=== PATIENT | female | born 1955 | race Caucasian/White ===

== ENCOUNTER 2017-03-23 09:14 | Inpatient (IN) ==
[2017-03-23 10:55] LABS: MANUAL DIFF NEEDED? NO
[2017-03-23 10:58] LABS: BASO% 0.3 % (0.0-0.8); EOS# 0.32 X1000 (0.0-0.7); EOS% 4.3 % (0.0-10.0); HEMATOCRIT 39.7 % (37.0-47.0); HEMOGLOBIN 12.4 g/dL (12.0-16.0); IMM GRAN# 0.03 X1000 (0.0-0.04); IMM GRAN% 0.4 % (0.0-0.5); LYMPH% 39.9 % (20.5-51.1); MCH 31.2 PG (27-31); MCHC 31.2 g/dL (33-37); MONO# 0.65 X1000 (0.11-0.59); MONO% 8.6 % (1.7-9.3); MPV 10.2 FL (7.4-10.4); NEUT% 46.5 % (42.2-75.2); PLT 227 X1000 (130-400); RBC 3.97 XMIL (4.2-5.4)
[2017-03-23 11:16] LABS: AGAP 8; ALBUMIN 3.6 g/dL (3.5-5.0); ALKALINE PHOSPHATASE 75 U/L (32-104); BUN 16 mg/dL (8-22); CALCIUM 8.9 mg/dL (8.8-10.2); CHLORIDE 98 mmol/L (98-107); COSMO 279; GOT 12 U/L (10-30); GPT < 5 U/L (10-36); SODIUM 138 mmol/L (136-145); TCO2 32 mmol/L (25-35); TOTAL BILIRUBIN 0.12 mg/dL (0.20-1.00); TOTAL PROTEIN 6.9 g/dL (6.3-8.3)
[2017-03-23 11:22] LABS: FREE T4 0.83 ng/dL (0.93-1.70)
[2017-03-23] MEDS: LOVENOX SUBQ SCH (11:25)
[2017-03-23] MEDS: NS 1,000 ML IV SCH (11:25)
[2017-03-23 11:37] LABS: ALLEN TEST YES; BE 8.4 mmoll (-3.0-3.0); BLOOD TYPE ARTERIAL; DRAW SITE R RADIAL; METHB 0.7 % (0.0-1.5); MODALITY CANNULA; O2(CT) 16.9 mL/dL (15.0-23.0); PO2(98.6) 69 mmHg (60-100); SAMPLE BLOOD; SAO2 95.6 % (95.0-100.0); THB 12.9 g/dL (11.5-17.4); pH(98.6) 7.33 (7.35-7.45)
[2017-03-23 11:38] LABS: PCO2(98.6) 70 mmHg (35-45)
[2017-03-23 11:55] LABS: URINE SOURCE CATH
[2017-03-23 11:59] LABS: BILIRUBIN URINE NEGATIVE (NEGATIVE); BLOOD URINE MODERATE (NEGATIVE); COLOR YELLOW; GLUCOSE URINE NEGATIVE (NEGATIVE); LEUKOCYTES URINE LARGE (NEGATIVE); NITRITE URINE POSITIVE (NEGATIVE); PROTEIN URINE 30 mg/dL (NEGATIVE); TURBIDITY URINE TURBID (CLEAR); UROBILINOGEN URINE NORMAL (NORMAL)
[2017-03-23 12:07] LABS: UR EPITHELIAL CELLS <10 /HPF (<10); URINE BACTERIA 3+ /HPF; URINE CULTURE NEEDED? YES; URINE MICRO REVIEW NEEDED? YES; URINE RBC 20-40 /HPF (<10); URINE WBC TNTC /HPF (<10)
[2017-03-23] MEDS ORDERED: PHENERGAN PO PRN (12:21)
[2017-03-23 12:28] LABS: URINE CASTS NONE SEEN
[2017-03-23 12:29] LABS: URINE CRYSTALS CA OXALATE PRESENT
--- NOTE | 2017-03-23 12:46 | Diag Imaging Result Doc PS360 ---
EXAM: CHEST-PORTABLE HISTORY: asthma TECHNIQUE: Portable upright COMPARISON: 01/14/2016. FINDINGS: The heart remains enlarged. The vessels are not distended. There is either an infiltrate in the left base or the left hemidiaphragm is elevated. Alternatively there could be atelectasis in the left base or fibrosis. Right lung remains clear. There is been prior surgery to the lower neck. IMPRESSION: Stable chest Electronically signed by Salvatore La 03/23/2017 12:44 PM
--- NOTE | 2017-03-23 12:52 | Diag Imaging Result Doc PS360 ---
EXAM: HEAD W/O CONTRAST INDICATION: AMS COMPARISON: 04/03/2015 FINDINGS: There is no discrete intracranial mass, mass effect, or intracranial hemorrhage. There is no evidence of acute infarct given the limited sensitivity of CT versus MRI. The surrounding soft tissues and bony structures are essentially unremarkable. IMPRESSION: No evidence of acute intracranial pathology. Electronically signed by Omi Mccabe 03/23/2017 12:50 PM
[2017-03-23] MEDS ORDERED: SINEMET 25/100 PO SCH (13:00)
[2017-03-23] MEDS: NORCO-10 PO PRN ×2 (13:31→19:53)
[2017-03-23] MEDS: ZOSYN 4.5 GM/NS 4.5 GM/100 ML IVPB IV SCH ×2 (13:31→20:32)
[2017-03-23] MEDS: DUONEB (A & A) INH SCH ×3 (16:03→23:15)
--- NOTE | 2017-03-23 17:22 | HISTORY AND PHYSICAL ---
CHIEF COMPLAINT: Delirium. HISTORY OF PRESENT ILLNESS: Mrs. Crystal Vick is a 61-year-old lady with a history of schizoaffective disorder, bipolar disorder, essential hypertension, type 2 noninsulin-dependent diabetes mellitus complicated by peripheral neuropathy, chronic respiratory failure with hypoxia secondary to COPD, and morbid obesity. Over the past several days her family reports that she has been more confused and disoriented. She has had visual and auditory hallucinations. Her thinking has been irrational and she has continued with strange and worrisome ideas. She has told her family that there are several devil worshipers living in their neighborhood and she feels that they are going to come to her house, chop her head off and cut her into small bits because she is fat. She had previously taken Latuda in the past as well as a Tegretol but we had stopped the Latuda secondary to EPS type symptoms and apraxia. We had tried her on a trial of Sinemet for the apraxia but it has really not made any significant difference. She has largely been bedbound for the past 6 months. She has a longstanding history of chronic respiratory failure with hypoxia secondary to COPD she wears home O2 at 3 L per nasal cannula. She is with complaint of mild dyspnea and a nonproductive cough. Her chest x-ray showed chronic COPD type changes and fibrosis. Arterial blood gases demonstrated a pH of 7.33, pCO2 70, PO2 69, and an O2 saturation of 95%. She has a chronic indwelling Kimbrough catheter. She denies any dysuria, increased urinary frequency, low back pain, nausea, or vomiting. PAST MEDICAL HISTORY: As above. PAST SURGICAL HISTORY: Hysterectomy, cholecystectomy, tonsillectomy, and lumbar diskectomy. ALLERGIES: Levofloxacin, sulfa. FAMILY HISTORY: Noncontributory. SOCIAL HISTORY: She is a former smoker. She does not consume alcoholic beverages. She lives at home with her spouse. MEDICATIONS: [place] 10 1 q.6 hours p.r.n. pain, Colace 100 mg b.i.d., Prozac 20 mg b.i.d., Lasix 40 mg daily, Lopressor 50 mg b.i.d., pantoprazole 40 mg daily, Seroquel XR 300 mg b.i.d., Imitrex on a p.r.n. basis, Imitrex 100 mg at onset of headache and may repeat 2 hours later, up to 2 doses per day, Sinemet 25/100 t.i.d. REVIEW OF SYSTEMS: She denies any recent weight gain or weight loss.HEENT: She wears glasses. CV: No chest pain, palpitations, or anginal equivalents. Pulmonary: See HPI. GI: No reflux, dysphagia, melena, hematochezia, change in bowel habits, or rectal bleeding. Endocrine: No polyuria. No polydipsia. Skin: No easy bruisability. : No leakage of urine with coughing or laughing. Neurologic: She has a history of migraines. Psychiatric: History of schizoaffective disorder and bipolar disorder. PHYSICAL EXAMINATION: VITAL SIGNS: Temperature 98.1 degrees, pulse 84, respirations 16, BP 136/74. This is a chronically ill, morbidly obese, 61-year-old lady in no apparent distress. She is bed- bound. HEENT: Fundi with arteriolar wall thickening. Pupils equal, round, reactive to light. Extraocular eye movements intact. TMs without bullae. NECK: Supple. No masses, JVD, or bruits. CV: Regular rate and rhythm. LUNGS: Distant breath sounds with increased period of expiration. There is scattered end- expiratory wheezing. ABDOMEN: Soft, nontender, with active bowel sounds. No hepatosplenomegaly. No abdominal bruits. EXTREMITIES: Trace ankle edema. BREASTS/MANAGER RETAIL/RECTAL: Exams deferred. NEUROLOGIC: She moves all extremities grossly. DTRs 2+ and symmetric. Cranial nerves 2 through 12 intact grossly. She is alert and oriented to name, place, and time. LABORATORY STUDIES: Various laboratory studies were obtained. A CBC demonstrated a white count of 7.5, hemoglobin 12.4, hematocrit 39.7, and a platelet count of 227,000. Electrolytes demonstrate the following. Sodium 138, potassium 4.0, chloride 98, BUN 16, creatinine 0.6, and glucose 128. Free T4 0.83. TSH 2.89. ASSESSMENT AND PLAN: 1. Acute delirium. She has underlying schizoaffective disorder and bipolar disorder. A CT scan demonstrated no evidence of intracranial abnormalities. She has not had any overt seizure activity at this point in time. Certainly her chest x-ray demonstrates chronic COPD type changes. She is retaining CO2. We will continue supplemental O2, add DuoNeb nebulizer treatments, and I am going to resume the Symbicort 160/4.5 two puffs b.i.d. She does not have any obvious electrolyte abnormalities other than a low free T4. She appears to be newly hypothyroid. I will begin levothyroxine 50 mcg daily and recheck a TSH and free T4 in 3 months. Her urinalysis was positive. We will begin broad-spectrum antibiotics including Zosyn pending blood cultures and urine cultures. We will continue Seroquel 300 mg p.o. b.i.d. and I am going to add Trileptal 150 mg b.i.d. and titrate upward as indicated. 2. Hypertension. Her blood pressure is stable. We will continue her current regimen of medications. 3. Type 2 noninsulin-dependent diabetes mellitus. I will place her on pattern sugars, Humulin R sliding scale. We will check baseline laboratory studies including a hemoglobin A1c and microalbumin. Given the patient's comorbid condition and clinical presentation, I believe that admission to the hospital for further evaluation is reasonable. At this point in time I anticipate that she will be in the hospital for at least 2 midnights and I will therefore place her in inpatient status. cc: Estephania Moreno MD
[2017-03-23] MEDS: SEROQUEL XR PO SCH (20:30)
[2017-03-23] MEDS: PROZAC PO SCH (20:31)
[2017-03-23] MEDS: LOPRESSOR PO SCH (20:31)
[2017-03-23] MEDS: TRILEPTAL PO SCH (20:40)
[2017-03-24] MEDS: NS 1,000 ML IV SCH ×3 (00:46→14:01)
[2017-03-24] MEDS: ZOSYN 4.5 GM/NS 4.5 GM/100 ML IVPB IV SCH ×4 (02:02→22:01)
[2017-03-24] MEDS: DUONEB (A & A) INH SCH ×6 (03:25→23:20)
[2017-03-24] MEDS: NORCO-10 PO PRN ×3 (03:59→22:10)
[2017-03-24] MEDS: SYNTHROID PO SCH (06:18)
[2017-03-24] MEDS: PROTONIX PO SCH (06:18)
[2017-03-24] MEDS: COLACE PO SCH (08:58)
[2017-03-24] MEDS: LOPRESSOR PO SCH ×3 (08:58→22:02)
[2017-03-24] MEDS: PROZAC PO SCH ×2 (08:58→22:01)
[2017-03-24] MEDS: SEROQUEL XR PO SCH ×2 (08:58→21:59)
[2017-03-24] MEDS: LASIX IV SCH (08:58)
[2017-03-24] MEDS: TRILEPTAL PO SCH ×2 (08:59→22:00)
[2017-03-24] MEDS: DIFLUCAN PO SCH (10:21)
[2017-03-24] MEDS: LOVENOX SUBQ SCH (10:22)
--- NOTE | 2017-03-24 10:46 | PROGRESS NOTE ---
DATE: 03/24/2017 SUBJECTIVE: Ms. Vick was admitted to [facility] with delirium and increasing paranoid ideation. She does have a history of schizoaffective disorder and bipolar disorder. She seems more calm this morning. She answered questions appropriately. She is still somewhat fearful that Devil worshippers are going to try to kill her and cut her into many pieces. She reported that she slept more peacefully last night. She is breathing comfortably, although they did increase her O2 to 4 L per nasal cannula last night. O2 saturations are ranging from 95% to 98%. She denies any persistent cough or pleuritic chest pain. She has less suprapubic abdominal pain. Urine cultures are growing out yeast and gram-negative rods. She continues with low back pain with radiation of pain down her left leg. She reports that the pain is worse when she tries to roll over or pushes against her left foot. OBJECTIVE: Vital Signs: She is afebrile, pulse 91, respirations 16, BP 130/60. CV: Regular rate and rhythm. Lungs: Distant breath sounds with scattered end-expiratory wheezing. Abdomen: Soft, nontender, with active bowel sounds. ASSESSMENT AND PLAN: 1. Acute delirium. She does have schizoaffective disorder and bipolar disorder. I am going to continue Seroquel 300 mg twice daily and I recently added Trileptal 150 mg twice daily. We will titrate upward on the Trileptal as needed. In the interim period, I am going to continue treating any inciting etiologies which could worsen the delirium. She appears to have a urinary tract infection. Urine cultures are growing out gram-negative rods and yeast. I will continue Zosyn and add Diflucan pending cultures. She seems to be breathing better. We will continue supplemental oxygen, as well as nebulizer treatments. I am going to add Symbicort 160/4.5 2 puffs twice daily. I will recheck an arterial blood gas in the morning. 2. Hypertension. Her blood pressure is stable. We will continue her current regimen of medications. 3. Type 2 noninsulin-dependent diabetes mellitus. We will continue her on an 1800 calorie [place] [employer] diet, pattern sugars and a Humulin R sliding scale. cc: Estephania Moreno MD
[2017-03-24] MEDS: SYMBICORT 160/4.5 MICROGM INHALER INH SCH (19:25)
[2017-03-24] MEDS: IMITREX PO PRN (22:44)
[2017-03-25] MEDS: ZOSYN 4.5 GM/NS 4.5 GM/100 ML IVPB IV SCH ×2 (01:38→07:24)
[2017-03-25] MEDS: NS 1,000 ML IV SCH (01:39)
[2017-03-25] MEDS: IMITREX PO PRN (03:17)
[2017-03-25] MEDS: DUONEB (A & A) INH SCH ×6 (03:20→22:59)
[2017-03-25] MEDS: SYNTHROID PO SCH (06:17)
[2017-03-25] MEDS: PROTONIX PO SCH (06:17)
[2017-03-25] MEDS: NORCO-10 PO PRN ×3 (07:25→21:18)
[2017-03-25] MEDS: SYMBICORT 160/4.5 MICROGM INHALER INH SCH ×2 (07:58→19:37)
--- NOTE | 2017-03-25 08:56 | Diag Imaging Result Doc PS360 ---
EXAM: LUMBAR SPINE 2-VIEWS - 03/25/2017 HISTORY: M54.42 TECHNIQUE: AP and lateral lumbar spine COMPARISON: 02/06/2011 FINDINGS: There is mild dextroscoliosis with apex at the thoracolumbar junction. There are [id number] multilevel degenerative changes. There is no fracture or subluxation identified. IMPRESSION: [id number] multilevel degenerative changes. No evidence of fracture or subluxation. Electronically signed by Payam Jimenez 03/25/2017 8:54 AM
--- NOTE | 2017-03-25 08:58 | Diag Imaging Result Doc PS360 ---
EXAM: XRAY HIP UNILATERAL LT - 03/25/2017 HISTORY: OA TECHNIQUE: Left hip two views COMPARISON: 07/30/2014 FINDINGS: There are possibly early osteoarthritic changes. There are no erosive or destructive changes identified. There is no fracture or dislocation identified. IMPRESSION: Possible early osteoarthritic changes. No evidence of fracture or dislocation. Electronically signed by Payam Jimenez 03/25/2017 8:56 AM
--- NOTE | 2017-03-25 09:00 | Diag Imaging Result Doc PS360 ---
EXAM: HAND COMPLETE RIGHT HISTORY: pain and diminished ROM TECHNIQUE: Three views COMMENT: There is patchy osteoporosis particularly in the periarticular regions. The joint spaces appear fairly well preserved. There is some osteophyte formation in the distal phalanx of the middle finger. There are apparent subchondral cysts in the lunate and scaphoid. There are no previous studies. IMPRESSION: No acute disease. Electronically signed by Slhomo May 03/25/2017 8:57 AM
[2017-03-25] MEDS: COLACE PO SCH (09:13)
[2017-03-25] MEDS: LOVENOX SUBQ SCH ×2 (09:13→10:21)
[2017-03-25] MEDS: LASIX IV SCH (09:13)
[2017-03-25] MEDS: SEROQUEL XR PO SCH ×2 (09:13→21:24)
[2017-03-25] MEDS: PROZAC PO SCH ×2 (09:13→21:18)
[2017-03-25] MEDS: LOPRESSOR PO SCH ×2 (09:13→21:19)
[2017-03-25] MEDS: DIFLUCAN PO SCH (09:13)
[2017-03-25] MEDS: TRILEPTAL PO SCH ×2 (09:13→21:18)
[2017-03-25] MEDS: ZOFRAN IV PRN ×2 (10:30→15:10)
[2017-03-25] MEDS: ROCEPHIN 1 GM/NS 1 GM/50 ML IVPB IV SCH (11:47)
[2017-03-25] MEDS: TYLENOL PO PRN (15:10)
[2017-03-26] MEDS: IMITREX PO PRN (03:41)
[2017-03-26] MEDS: DUONEB (A & A) INH SCH ×6 (03:48→22:50)
[2017-03-26] MEDS: NS 1,000 ML IV SCH ×4 (04:51→20:29)
[2017-03-26] MEDS: NORCO-10 PO PRN ×2 (05:57→12:00)
[2017-03-26] MEDS: PROTONIX PO SCH (06:07)
[2017-03-26] MEDS: SYNTHROID PO SCH (06:07)
[2017-03-26] MEDS: SYMBICORT 160/4.5 MICROGM INHALER INH SCH ×2 (07:47→19:04)
[2017-03-26] MEDS: LASIX IV SCH (09:06)
--- NOTE | 2017-03-26 09:11 | PROGRESS NOTE ---
DATE: 03/26/2017 SUBJECTIVE: Ms. Vick seems very calm this morning. Her paranoid thought processes have improved greatly on the Trileptal. She is with complaint of abdominal bloating and gas after meals. She is nauseated, but has had no vomiting. She has not had a bowel movement in 3 days. She typically has a bowel movement every 3 to 5 days at home. She denies any further dysuria or increased urinary frequency. Urine cultures grew out Escherichia coli and yeast. She is making slow but steady progress with physical therapy. She is breathing much more comfortably. She only has a minimal cough. She has no pleuritic chest pain. OBJECTIVE: Vital Signs: She is maintaining O2 saturations of 94% to 96% on 3 liters of O2. She is afebrile. Pulse 76, respirations 18, blood pressure 140/62. Cardiovascular: Regular rate and rhythm. Lungs: Clear. Abdomen: Diffusely tender with bowel sounds. No rebound or guarding. ASSESSMENT AND PLAN: 1. Acute on chronic respiratory failure with hypercapnia secondary to chronic obstructive pulmonary disease. Clinically she is doing much better. We will continue Symbicort 160/4.5 two puffs twice daily and DuoNeb nebulizer treatments, as well as her chronic home oxygen. I will recheck a PA and lateral chest x-ray today. 2. Abdominal pain. Given the bloating, gas, and constipation, I suspect that she has irritable bowel syndrome with constipation. I will go ahead and check a CT scan of the abdomen and pelvis to make sure there are no other intraabdominal abnormalities. Otherwise, I will begin Linzess. We will consult gastroenterology medicine for consideration of a colonoscopy. 3. Urinary tract infection. We will continue both Diflucan and Rocephin. 4. Physical debility. We will continue physical therapy. We will consult social media marketing analyst for short term rehabilitation placement. cc: Estephania Moreno MD
--- NOTE | 2017-03-26 10:09 | Diag Imaging Result Doc PS360 ---
EXAM: CHEST-PORTABLE INDICATION: COPD TECHNIQUE: One view COMPARISON: 03/23/2017 FINDINGS: The vague opacity at the left lung base is stable. The right lung is clear. No new consolidations appreciated. Cardiac silhouette is stable. IMPRESSION: Stable chest. Electronically signed by Omi Mccabe 03/26/2017 10:06 AM
--- NOTE | 2017-03-26 10:55 | Diag Imaging Result Doc PS360 ---
ABDOMEN/PELVIS W/CONTRAST - 03/26/2017 INDICATION: persistent abdominal pain TECHNIQUE: A CT dose reduction protocol was used. COMPARISON: 03/09/2014 FINDINGS: There is consolidation of the left lower lobe with a trace effusion. There is some patchy atelectasis at the right lung base. Heart size is grossly normal. There are several stable benign cysts in the liver. Stable cholecystectomy changes. Kimbrough catheter in the urinary bladder. Urinary bladder and rectum are normal. The pancreas, spleen, adrenals, and kidneys are normal. No bowel obstruction or inflammation. There is extreme laxity of the anterior abdominal muscular wall. There are moderate degenerative changes of the spine. No acute or suspicious bony lesion. IMPRESSION: 1. Left lower lobe consolidation with a small effusion. This may represent pneumonia or aspiration. 2. Kimbrough catheter in the urinary bladder. Electronically signed by Felipe Armijo 03/26/2017 10:53 AM
[2017-03-26] MEDS: COLACE PO SCH (11:32)
[2017-03-26] MEDS: LOPRESSOR PO SCH ×2 (11:32→20:29)
[2017-03-26] MEDS: PROZAC PO SCH ×2 (11:32→20:29)
[2017-03-26] MEDS: DIFLUCAN PO SCH (11:32)
[2017-03-26] MEDS: SEROQUEL XR PO SCH ×2 (11:33→20:29)
[2017-03-26] MEDS: TRILEPTAL PO SCH ×2 (11:33→20:28)
[2017-03-26] MEDS: LOVENOX SUBQ SCH (11:33)
[2017-03-26] MEDS: ROCEPHIN 1 GM/NS 1 GM/50 ML IVPB IV SCH (11:34)
[2017-03-26 12:14] LABS: URINE MICRO REVIEW NEEDED? NO; URINE SOURCE CATH
[2017-03-26 12:18] LABS: BILIRUBIN URINE NEGATIVE (NEGATIVE); BLOOD URINE NEGATIVE (NEGATIVE); COLOR STRAW; GLUCOSE URINE NEGATIVE (NEGATIVE); LEUKOCYTES URINE MODERATE (NEGATIVE); NITRITE URINE NEGATIVE (NEGATIVE); PH URINE 5.5; PROTEIN URINE NEGATIVE (NEGATIVE); SP GRAVITY URINE 1.016; TURBIDITY URINE CLEAR (CLEAR); UR EPITHELIAL CELLS <10 /HPF (<10); URINE BACTERIA NEGATIVE /HPF; URINE CULTURE NEEDED? YES; URINE RBC <10 /HPF (<10); UROBILINOGEN URINE NORMAL (NORMAL)
[2017-03-26] MEDS: ZOFRAN IV PRN (14:25)
[2017-03-26] MEDS: TYLENOL PO PRN (20:28)
[2017-03-27] MEDS: DUONEB (A & A) INH SCH ×6 (04:06→23:11)
[2017-03-27] MEDS: PROTONIX PO SCH (06:11)
[2017-03-27] MEDS: SYNTHROID PO SCH (06:11)
[2017-03-27] MEDS: LINZESS PO SCH (06:11)
[2017-03-27] MEDS: SYMBICORT 160/4.5 MICROGM INHALER INH SCH ×2 (07:48→19:14)
[2017-03-27] MEDS: PROZAC PO SCH ×2 (09:25→19:59)
[2017-03-27] MEDS: SEROQUEL XR PO SCH ×2 (09:27→19:59)
[2017-03-27] MEDS: DIFLUCAN PO SCH (09:27)
[2017-03-27] MEDS: TRILEPTAL PO SCH ×2 (09:27→19:59)
[2017-03-27] MEDS: COLACE PO SCH (09:27)
[2017-03-27] MEDS: DULCOLAX PR ONE ×2 (09:29→10:01)
[2017-03-27] MEDS: LOPRESSOR PO SCH ×2 (09:29→19:59)
[2017-03-27] MEDS: LASIX IV SCH (09:29)
[2017-03-27] MEDS: LOVENOX SUBQ SCH (09:29)
[2017-03-27] MEDS: NS 1,000 ML IV SCH (10:02)
[2017-03-27] MEDS: ROCEPHIN 1 GM/NS 1 GM/50 ML IVPB IV SCH (11:12)
[2017-03-27] MEDS: NORCO-10 PO PRN ×3 (11:13→22:00)
[2017-03-27] MEDS: TYLENOL PO PRN (13:00)
[2017-03-28] MEDS: TYLENOL PO PRN ×2 (01:27→20:12)
[2017-03-28] MEDS: DUONEB (A & A) INH SCH ×6 (04:18→23:14)
[2017-03-28] MEDS: LINZESS PO SCH (06:30)
[2017-03-28] MEDS: SYNTHROID PO SCH (06:30)
[2017-03-28] MEDS: NORCO-10 PO PRN ×2 (06:30→16:18)
[2017-03-28] MEDS: IMITREX PO PRN (06:30)
[2017-03-28] MEDS: PROTONIX PO SCH (06:30)
[2017-03-28] MEDS: ZOFRAN IV PRN (06:30)
[2017-03-28] MEDS: SYMBICORT 160/4.5 MICROGM INHALER INH SCH ×2 (07:54→19:22)
[2017-03-28] MEDS: TRILEPTAL PO SCH ×2 (09:44→20:11)
[2017-03-28] MEDS: COLACE PO SCH (09:44)
[2017-03-28] MEDS: SEROQUEL XR PO SCH ×2 (09:44→20:11)
[2017-03-28] MEDS: PROZAC PO SCH ×3 (09:45→20:12)
[2017-03-28] MEDS: DIFLUCAN PO SCH (09:45)
[2017-03-28] MEDS: MIRALAX PO SCH (09:45)
[2017-03-28] MEDS: LOVENOX SUBQ SCH (09:45)
[2017-03-28] MEDS: LOPRESSOR PO SCH ×2 (09:45→20:12)
[2017-03-28] MEDS: LASIX IV SCH (09:51)
--- NOTE | 2017-03-28 13:27 | PROGRESS NOTE ---
DATE: 03/28/2017 SUBJECTIVE: Patient's chart was reviewed. In summary, the patient was admitted on 03/23/2017 with delirium. Full evaluation while hospitalized has revealed delirium, likely secondary to underlying schizophrenia, urinary tract infection, and probable aspiration pneumonia. Medications have been adjusted. The patient's overall condition is slowly improving. This morning, patient states, overall, she is feeling reasonably well. She remains profoundly weak. She is unable to rise from the bed. The patient does continue to complain of some left upper quadrant pain. Recent CT scan suggested no intra-abdominal process, however, the left lower lung field consolidation was present. There has been no evidence of fevers or chills. Physical therapy is working with the patient. Her p.o. intake is reasonable. OBJECTIVE: Vital Signs: T-max 99.1 degrees, heart rate 78-86, respirations 16-20, blood pressure 132-147 over 48-68. General: Obese in no acute distress. Cardiovascular: Regular rate and rhythm. No significant murmurs, rubs, or gallops. Pulmonary: Clear to auscultation anteriorly. Abdomen: Soft, nondistended. Minimal tenderness in the left upper quadrant. No guarding or rebound. Positive bowel sounds. Extremities: Moves all extremities well. No significant clubbing or cyanosis. Patient has trace lower extremity edema bilaterally. Dermatologic: Evaluation reveals no evidence of rash. Neurologic: Intact. Psychologic: Examination reveals a slightly blunted affect. LABORATORY DATA: None. ASSESSMENT AND PLAN: 1. Acute delirium. Upon admission, patient was noted to have acute delirium. It was felt this likely was secondary to a combination of her underlying schizoaffective disorder and bipolar disorder. In addition, patient has been found to have presumed aspiration pneumonia and urinary tract infection. With treatment of each of these conditions, her overall condition has stabilized. For now, we will continue her psychiatric medications as prescribed. 2. Presumed aspiration pneumonia. Patient has a consolidation in the left lower lung field with a small pleural effusion. We will convert the patient from Rocephin to Zosyn therapy. We will encourage incentive spirometry. We will follow her clinical course very closely. We will continue oxygen per protocol. 3. Left upper quadrant pain. Recent CT scan revealed no evidence of acute disease with the exception of pulmonary consolidation. Certainly, in the area of pain, this could be simply secondary to her underlying pneumonia. We will treat as above. 4. Recurring urinary tract infections. We will convert the patient from Rocephin to Zosyn therapy. Once again, this will be followed. 5. Profound physical deconditioning. The patient is currently being treated with physical therapy. We will plan rehabilitation once able. 6. Constipation. We will continue the patient on her current regimen as her bowel movements are acceptable. 7. Type 2 diabetes. We will continue pattern blood sugars with sliding scale insulin. DISPOSITION: At this point, patient continues to require assisted care in a hospital setting. We will plan discharge home once appropriate. cc: MD Estephania Baugh MD
[2017-03-28] MEDS: ROCEPHIN 1 GM/NS 1 GM/50 ML IVPB IV SCH (15:27)
[2017-03-28] MEDS: ZOSYN 3.375 GM/NS 3.375 GM/50 ML IVPB IV SCH ×2 (15:46→21:30)
[2017-03-29] MEDS: DUONEB (A & A) INH SCH ×4 (03:30→20:37)
[2017-03-29] MEDS: ZOSYN 3.375 GM/NS 3.375 GM/50 ML IVPB IV SCH ×2 (03:50→08:58)
[2017-03-29] MEDS: SYNTHROID PO SCH (06:15)
[2017-03-29] MEDS: LINZESS PO SCH (06:15)
[2017-03-29] MEDS: PROTONIX PO SCH (06:16)
[2017-03-29] MEDS: SYMBICORT 160/4.5 MICROGM INHALER INH SCH ×2 (07:50→20:37)
[2017-03-29] MEDS: SEROQUEL XR PO SCH ×2 (08:54→20:07)
[2017-03-29] MEDS: PROZAC PO SCH ×3 (08:55→20:07)
[2017-03-29] MEDS: DIFLUCAN PO SCH (08:55)
[2017-03-29] MEDS: LOPRESSOR PO SCH ×2 (08:56→20:07)
[2017-03-29] MEDS: TRILEPTAL PO SCH ×3 (08:56→20:07)
[2017-03-29] MEDS: MIRALAX PO SCH (09:01)
[2017-03-29] MEDS: COLACE PO SCH (09:02)
[2017-03-29] MEDS ORDERED: ALBUTEROL NEB INH PRN (10:36)
[2017-03-29] MEDS: LOVENOX SUBQ SCH (12:48)
[2017-03-29] MEDS: TYLENOL PO PRN (14:54)
[2017-03-29] MEDS: ATIVAN PO PRN ×2 (14:55→22:41)
[2017-03-29] MEDS: ULTRAM PO PRN (20:07)
[2017-03-29] MEDS: MACRODANTIN PO SCH (20:07)
[2017-03-30] MEDS: DUONEB (A & A) INH SCH ×4 (03:35→22:54)
[2017-03-30] MEDS: ULTRAM PO PRN (05:20)
[2017-03-30 05:59] LABS: MANUAL DIFF NEEDED? NO
[2017-03-30] MEDS: LINZESS PO SCH (06:04)
[2017-03-30] MEDS: PROTONIX PO SCH (06:04)
[2017-03-30] MEDS: SYNTHROID PO SCH (06:04)
[2017-03-30 06:10] LABS: BASO% 0.2 % (0.0-0.8); EOS# 0.17 X1000 (0.0-0.7); EOS% 3.2 % (0.0-10.0); HEMOGLOBIN 12.1 g/dL (12.0-16.0); IMM GRAN# 0.03 X1000 (0.0-0.04); IMM GRAN% 0.6 % (0.0-0.5); LYMPH% 33.8 % (20.5-51.1); MCH 31.3 PG (27-31); MCHC 32.7 g/dL (33-37); MCV 95.6 FL (81-99); MONO% 13.2 % (1.7-9.3); MPV 9.8 FL (7.4-10.4); PLT 254 X1000 (130-400); RBC 3.87 XMIL (4.2-5.4)
[2017-03-30 07:02] LABS: AGAP 15; BUN 6 mg/dL (8-22); CALCIUM 9.2 mg/dL (8.8-10.2); CHLORIDE 91 mmol/L (98-107); COSMO 269; SODIUM 136 mmol/L (136-145); TCO2 30 mmol/L (25-35)
[2017-03-30] MEDS: SYMBICORT 160/4.5 MICROGM INHALER INH SCH ×2 (08:16→22:53)
[2017-03-30] MEDS: ATIVAN PO PRN ×2 (08:53→23:55)
[2017-03-30] MEDS: PROZAC PO SCH ×2 (08:54→22:12)
[2017-03-30] MEDS: DIFLUCAN PO SCH (08:54)
[2017-03-30] MEDS: TRILEPTAL PO SCH ×2 (08:54→22:13)
[2017-03-30] MEDS: MIRALAX PO SCH (08:54)
[2017-03-30] MEDS: SEROQUEL XR PO SCH ×2 (08:54→22:12)
[2017-03-30] MEDS: LOPRESSOR PO SCH ×2 (08:54→22:12)
--- NOTE | 2017-03-30 09:10 | Diag Imaging Result Doc PS360 ---
EXAM: CHEST-PORTABLE HISTORY: COPD TECHNIQUE: AP upright portable at 0840 COMMENT: There is cardiomegaly. There is obscuration of the retrocardiac portion of the left lower lobe. This has not changed significantly since 03/26/2017. There is been no apparent change since 03/23/2017. IMPRESSION: Stable chest Electronically signed by Shlomo May 03/30/2017 9:08 AM
[2017-03-30] MEDS: ROCEPHIN 1 GM/NS 1 GM/50 ML IVPB IV SCH (09:12)
[2017-03-30] MEDS: PREDNISONE PO SCH (09:12)
[2017-03-30] MEDS: CLINDAMYCIN 900 MG/NS 900 MG/50 ML IVPB IV SCH ×2 (10:25→17:25)
[2017-03-30] MEDS: LOVENOX SUBQ SCH (10:26)
[2017-03-30] MEDS ORDERED: TYLENOL ONE (12:52)
[2017-03-30] MEDS: TYLENOL PO PRN (12:53)
--- NOTE | 2017-03-30 13:37 | PROGRESS NOTE ---
DATE: 03/30/2017 SUBJECTIVE: Ms. Vick has a history of lumbago with sciatica on the left. She is with complaint of low back pain with radiation of pain, and numbness and tingling extending down the left leg. She is making slow progress with physical therapy. She seems much more calm. She is having less paranoid ideation. She continues with a persistent nonproductive cough, pleuritic chest pain, and her chest x-ray showed a possible infiltrate in the right lower lobe. Dr. Bonilla was concerned about the possibility of an aspiration pneumonia and switched her to Zosyn over the weekend. She is with complaint of multiple episodes of loose watery diarrhea. OBJECTIVE: Vital signs: Temperature 98.6 degrees, blood pressure 147/70, pulse 89, respirations 18. Cardiovascular: Regular rate and rhythm. Lungs: Faint crackles in the right base. Abdomen: Soft, nontender, with active bowel sounds. ASSESSMENT AND PLAN: 1. Chronic respiratory failure with hypoxia secondary to chronic obstructive pulmonary disease complicated by aspiration pneumonitis. Based on her urine cultures, which grew out Escherichia coli which was resistant to Zosyn, I am going to stop the Zosyn and resume Rocephin and add clindamycin. We will continue nebulizer treatments and the Symbicort. 2. Schizophrenia and bipolar disorder. Clinically, she continues to improve. We will titrate upward on the Trileptal as indicated. 3. Lumbago with sciatica on the left. We will treat her with Flexeril 10 mg at night and low- dose oral steroids. Because of the potential for seizures, I am going to stop the Ultram while she is taking Flexeril. 4. General debility. We will continue physical therapy. [facility] has declined admission. I spoke to [facility] and they will be unable to take her. We will continue to look for rehabilitation bed placement. If unable to find a rehabilitation bed, we will make arrangements for home health at home. cc: Estephania Moreno MD
[2017-03-30] MEDS: FLEXERIL PO SCH (22:12)
[2017-03-30] MEDS: MACRODANTIN PO SCH (22:13)
[2017-03-31] MEDS: CLINDAMYCIN 900 MG/NS 900 MG/50 ML IVPB IV SCH ×3 (01:52→17:01)
[2017-03-31] MEDS: DUONEB (A & A) INH SCH ×4 (03:24→20:07)
[2017-03-31] MEDS: PROTONIX PO SCH (06:10)
[2017-03-31] MEDS: SYNTHROID PO SCH (06:10)
[2017-03-31] MEDS: MIRALAX PO SCH (08:56)
[2017-03-31] MEDS: SEROQUEL XR PO SCH ×2 (08:56→20:54)
[2017-03-31] MEDS: ROCEPHIN 1 GM/NS 1 GM/50 ML IVPB IV SCH (08:56)
[2017-03-31] MEDS: LOPRESSOR PO SCH ×2 (08:57→20:56)
[2017-03-31] MEDS: TRILEPTAL PO SCH ×2 (08:57→20:55)
[2017-03-31] MEDS: PREDNISONE PO SCH (08:57)
[2017-03-31] MEDS: DIFLUCAN PO SCH (08:57)
[2017-03-31] MEDS: PROZAC PO SCH ×2 (08:57→21:07)
--- NOTE | 2017-03-31 09:25 | PROGRESS NOTE ---
DATE: 03/31/2017 SUBJECTIVE: Mrs. Vick has a history of schizophrenia and bipolar disorder. This morning, she is having more paranoid ideation. She does not want to consider going [place] because there is a conspiracy to kill her if she were to go to [place]. She told me not to challenge her on this subject. She is currently on Seroquel 300 mg b.i.d. and Trileptal 300 mg b.i.d. She had taken Latuda in the past, but developed EPS-type symptoms secondary to the Latuda. She was breathing comfortably. She is maintaining O2 saturations of 95% to 97% on 3 L of O2. Her cough has improved. She is not having any pleuritic chest pain. She continues to make slow, steady progress with physical therapy, and she was sitting up in the chair eating breakfast this morning. Blood sugars are ranging from 92 to 141. OBJECTIVE: Vital Signs: Temperature 98.8 degrees, pulse 85, respirations 18, blood pressure 155/68. CV: Regular rate and rhythm. Lungs: Faint crackles in the right base. Abdomen: Soft, nontender, with active bowel sounds. ASSESSMENT AND PLAN: 1. Chronic respiratory failure with hypoxia secondary to acute chronic obstructive pulmonary disease exacerbation, complicated by aspiration pneumonitis. I will continue supplemental oxygen, DuoNeb nebulizer treatments, and intravenous antibiotics, including Rocephin and clindamycin. I will recheck a PA and lateral chest x-ray in the morning. 2. Schizophrenia with bipolar disorder. I will continue Seroquel and Trileptal, and add Depakote 250 mg twice daily. I will consult one of the psychiatrists to see her in evaluation. 3. Physical debility. We will continue physical therapy. We are attempting to find a rehab bed for her. 4. Type 2 noninsulin-dependent diabetes mellitus. We will continue her on pattern sugars, Humulin R sliding scale, and an 1800-calorie [place] diet. cc: Estephania Moreno MD
[2017-03-31] MEDS: DEPAKOTE PO SCH ×2 (09:36→20:56)
[2017-03-31] MEDS: LOVENOX SUBQ SCH (09:36)
[2017-03-31] MEDS: SYMBICORT 160/4.5 MICROGM INHALER INH SCH ×2 (09:56→20:07)
[2017-03-31] MEDS: NORCO-10 PO PRN ×2 (13:22→21:03)
[2017-03-31] MEDS: FLEXERIL PO SCH (20:56)
[2017-03-31] MEDS: MACRODANTIN PO SCH (20:56)
[2017-03-31] MEDS: ATIVAN PO PRN (21:03)
[2017-03-31] MEDS: TYLENOL PO PRN (23:40)
[2017-04-01] MEDS: CLINDAMYCIN 900 MG/NS 900 MG/50 ML IVPB IV SCH ×2 (02:41→09:40)
[2017-04-01] MEDS: DUONEB (A & A) INH SCH ×2 (04:18→09:41)
[2017-04-01] MEDS: SYNTHROID PO SCH (06:32)
[2017-04-01] MEDS: PROTONIX PO SCH (06:32)
[2017-04-01] MEDS: NORCO-10 PO PRN ×2 (06:38→13:23)
[2017-04-01 07:47] VITALS: BP 138/55
[2017-04-01] MEDS ORDERED: TRILEPTAL PO SCH (08:26)
[2017-04-01] MEDS ORDERED: KLOR-CON PO ONE (08:26)
[2017-04-01] MEDS: ROCEPHIN 1 GM/NS 1 GM/50 ML IVPB IV SCH (08:48)
[2017-04-01] MEDS: PREDNISONE PO SCH (08:50)
[2017-04-01] MEDS: LOPRESSOR PO SCH (08:51)
[2017-04-01] MEDS: DEPAKOTE PO SCH (08:51)
[2017-04-01] MEDS: DIFLUCAN PO SCH (08:51)
[2017-04-01] MEDS: MIRALAX PO SCH (08:57)
[2017-04-01] MEDS: SEROQUEL XR PO SCH (08:57)
[2017-04-01] MEDS: PROZAC PO SCH (08:58)
[2017-04-01] MEDS: LOVENOX SUBQ SCH (09:40)
[2017-04-01] MEDS: SYMBICORT 160/4.5 MICROGM INHALER INH SCH (09:42)
--- NOTE | 2017-04-01 09:58 | DISCHARGE SUMMARY ---
ADMISSION DATE: 03/23/2017 DISCHARGE DATE: 04/01/2017 DISCHARGE DIAGNOSES: 1. Acute delirium secondary to underlying urinary tract infection. 2. Schizoaffective disorder with bipolar depression. 3. Chronic respiratory failure with hypercapnia secondary to chronic obstructive pulmonary disease. 4. Chronic respiratory failure with hypercapnia secondary to acute chronic obstructive pulmonary disease exacerbation complicated by aspiration pneumonitis. 5. Essential hypertension. 6. Type 2 [id number] diabetes mellitus. 7. Primary hypothyroidism. 8. Morbid obesity. 9. Lumbago with sciatica on the left. DISCHARGE INSTRUCTIONS: 1. The patient will be transferred via ambulance to [facility] rehab facility in order to undergo short-term rehab. 2. Activity as tolerated. 3. 1800 calorie ADA diet. MEDICATIONS: 1. [place] 10 1 q.6 hours p.r.n. pain. 2. DuoNeb nebulizer treatments, nebulized 4 times daily. 3. Symbicort 160/4.5 two puffs b.i.d. 4. O2 at 3 L per nasal cannula continuously. 5. Trileptal 600 mg b.i.d. 6. Depakote 250 mg b.i.d. 7. Klonopin 0.25 mg t.i.d. 8. Levothyroxine 50 mcg daily. 9. Lopressor 50 mg b.i.d. 10. Flexeril 10 mg at bedtime. 11. Pantoprazole 40 mg daily. 12. MiraLAX 17 g in 8 ounces of water daily. 13. Seroquel XR [id number] mg b.i.d. 14. Imitrex 100 mg q.2 hours p.r.n. migraine headache. Up to 2 doses per day. 15. Diflucan 100 mg daily for 7 days. 16. Macrodantin 50 mg b.i.d. for 7 days. 17. Trazodone 100 mg at bedtime p.r.n. insomnia. 18. Fluoxetine 40 mg daily. PHYSICAL EXAMINATION: General: This is a chronically ill-appearing, 61-year-old lady in no apparent distress. Vital Signs: She is afebrile. Vital signs are stable. CV: Regular rate and rhythm. Lungs: Distant breath sounds with increased period of expiration. There are few scattered rhonchi in the right base. Abdomen: Soft, nontender, with active bowel sounds. HOSPITAL COURSE: Ms. Crystal Vick was admitted to [facility] with acute delirium. She was confused, disoriented and was having persistent paranoid ideation. She was concerned that devil worshipers were attempting to kill her, behead her and then chop her body into multiple pieces. She had previously taken Latuda in the past but developed EPS type symptoms secondary to the Latuda. Her initial CT scan of the brain demonstrated chronic white matter changes. We obtained blood and urine cultures and began broad-spectrum antibiotics. Urine cultures grew out E coli and yeast. We treated her with Rocephin and Diflucan. On admission, she was also noted to have increasing shortness of breath, diffuse wheezing, persistent cough and pleuritic chest pain with deep inspiration and paroxysms of cough. We continued her supplemental O2 and added DuoNeb nebulizer treatments, and broad-spectrum antibiotics. We added Symbicort 160/4.5 2 puffs b.i.d. She did have some nausea and vomiting and apparently aspirated. She was treated with broad- spectrum antibiotics including Rocephin and clindamycin. With aggressive management of the underlying COPD exacerbation, UTI and aspiration pneumonia, her mental status improved significantly. We were able to switch her to oral antibiotics and she will complete an additional 7 day course of Macrodantin and Diflucan as an outpatient. During her hospitalization we also adjusted her medicines for the underlying schizoaffective disorder and bipolar depression. We continued Seroquel 300 mg b.i.d. We added Trileptal and titrated upward to a dosage of 600 mg b.i.d., her level was 9 on a dosage of 300 mg b.i.d. We also added Depakote 250 mg b.i.d. With more aggressive management of the underlying schizoaffective disorder, her moods stabilized and she was much more calm and interactive with family and staff. Her paranoid ideation certainly improved greatly but she still has episodes of strange thoughts, but they had no longer seem to bother her. She has largely been bedbound over the past 6 months. Physical therapy worked with her. She made slow progress. She was able to sit up in a chair. She was able to walk a few steps in the room with the assistance of physical therapy. We felt that she would benefit from rehab to continue strengthening exercises. It is my hope that 1 day she will be able to walk and ambulate independently and be able to perform ADL in an independent manner. Her blood pressure remained well controlled on her current regimen of medications. Her sugars were stable. Her sugars have been stable on diet alone. We continued pattern sugars and a Humulin R sliding scale. Having reached maximum hospital benefit, the patient was discharged in stable condition. cc: Estephania Moreno MD
== END 2017-04-01 16:42 | disposition home health service (06) ==
LOC: DIRADM 09:14 → 3N 10:20
PROVIDERS: ADMIT Internal Medicine; ATTEND Internal Medicine